=== PATIENT | female | born 1965 ===

== ENCOUNTER 2016-11-14 18:59 | Inpatient (IN) | payer MEDICAID, OTHER ==
[2016-11-14 20:05] LABS: BASO # 0.03 K/mm3 (0.0-2.0); BASO % 0.2 % (0.0-3.0); EOS # 0.1 (0.0-0.7); EOS % 0.3 % (1.5-5.0); GRAN # 10.58 (1.4-6.5); HEMATOCRIT 24.8 % (36.0-48.0); LYMPH # 3.3 (1.2-3.4); MEAN CELL VOLUME 51.6 fl (80.0-105.0); MEAN CORPUSCULAR HEMOGLOBIN 14.3 pg (25.0-35.0); MEAN CORPUSCULAR HGB CONC 27.8 g/dl (31.0-37.0); MONO # 1.1 (0.1-0.6); MONO % 7.5 % (1.0-6.0); PLATELET COUNT 383 10^3/uL (120.0-450.0); WHITE BLOOD COUNT 15.1 10^3/ul (4.5-11.0)
[2016-11-14 20:15] LABS: INR 0.93 (0.93-1.08); PARTIAL THROMBOPLASTIN TIME 23.7 Seconds (23.7-30.8)
[2016-11-14 20:40] LABS: ALKALINE PHOSPHATASE 61 U/L (38-126); ALT/SGPT 31 U/L (7-56); AST/SGOT 44 U/L (14-36); BILIRUBIN,TOTAL 0.2 mg/dL (0.2-1.3); BLOOD UREA NITROGEN 10 mg/dL (7-21); CALCIUM 8.1 mg/dL (8.4-10.5); CARBON DIOXIDE 22 mmol/L (21-33); CHLORIDE 110 mmol/L (98-107); GFR AFRICAN-AMERICAN > 60; GLUCOSE,RANDOM 103 mg/dL (70-110); POTASSIUM 3.4 mmol/L (3.6-5.0); SODIUM 140 mmol/L (132-148); TOTAL PROTEIN 6.7 g/dL (5.8-8.3)
[2016-11-14] MEDS ORDERED: Potassium Chloride 20 mEq ER Tab PO STA (20:47)
--- NOTE | 2016-11-14 21:08 | ED PDOC ---
Arrival/HPI - General Chief Complaint: Female Genitourinary Time Seen by Provider: 11/14/16 19:04 Historian: Patient - History of Present Illness Narrative History of Present Illness (Text): 11/14/16 19:35 Sarah Rubi is a 51 year old female, whose past medical history includes substance abuse, who presents to the Emergency department complaining of vaginal bleeding for the past 2 months. Patient denies any fever, chills, chest pain, shortness of breath, nausea, vomiting, diarrhea, urinary symptoms, back pain, neck pain, headache, dizziness, or any other complaints. No PMD Time/Duration: > month (2 months) Symptom Onset: Gradual Symptom Course: Unchanged Activities at Onset: Light Context: Home Past Medical History - Provider Review Nursing Documentation Reviewed: Yes - Infectious Disease Hx of Infectious Diseases: None - Cardiac Hx Cardiac Disorders: No Hx Hypertension: Yes - Pulmonary Hx Tuberculosis: No - Neurological HX Cerebrovascular Accident: No Hx Seizures: No - Hematological/Oncological Hx Cancer: No - Musculoskeletal/Rheumatological Hx Falls: No - Genitourinary/Gynecological Hx Sexually Transmitted Diseases: No - Psychiatric Hx Substance Use: No - Surgical History Hx Section: Yes (x2) - Anesthesia Hx Anesthesia: Yes Hx Anesthesia Reactions: No Hx Malignant Hyperthermia: No Family/Social History - Physician Review Nursing Documentation Reviewed: Yes Family/Social History: Unknown Family HX Smoking Status: Heavy Smoker > 10 Cigarettes Daily Hx Alcohol Use: No Hx Substance Use: No Substance used: heroine, cocaine, marijuana Allergies/Home Meds Allergies/Adverse Reactions: Allergies aspirin Adverse Reaction (Verified 11/14/16 19:14) RASH Home Medications: Home Meds Medication Instructions Recorded Confirmed metFORMIN [glucOPHAGE] 1 tab PO BID 11/14/16 11/14/16 Review of Systems - Physician Review All systems were reviewed & negative as marked: Yes - Review of Systems Constitutional: Normal. absent: Fevers Eyes: Normal ENT: Normal Respiratory: Normal. absent: SOB, Cough Cardiovascular: Normal. absent: Chest Pain Gastrointestinal: Normal. absent: Abdominal Pain, Diarrhea, Nausea, Vomiting Genitourinary Female: Vaginal Bleeding. absent: Dysuria, Frequency, Hematuria, Urine Output Changes Musculoskeletal: Normal. absent: Back Pain, Neck Pain Skin: Normal. absent: Rash Neurological: Normal. absent: Headache, Dizziness Endocrine: Normal Hemo/Lymphatic: Normal Psychiatric: Normal Physical Exam Vital Signs Reviewed: Yes Vital Signs Temp Pulse Resp BP Pulse Ox 11/14/16 22:00 98.3 F 69 16 124/74 99 11/14/16 19:10 99.1 F 71 19 121/83 100 Temperature: Afebrile Blood Pressure: Normal Pulse: Regular Respiratory Rate: Normal Appearance: Positive for: Well-Appearing, Non-Toxic, Comfortable Pain Distress: None Mental Status: Positive for: Alert and Oriented X 3 - Systems Exam Head: Present: Atraumatic, Normocephalic Pupils: Present: PERRL Extroacular Muscles: Present: EOMI Conjunctiva: Present: Normal Mouth: Present: Moist Mucous Membranes Neck: Present: Normal Range of Motion Respiratory/Chest: Present: Clear to Auscultation, Good Air Exchange. No: Respiratory Distress, Accessory Muscle Use Cardiovascular: Present: Regular Rate and Rhythm, Normal S1, S2. No: Murmurs Abdomen: Present: Normal Bowel Sounds. No: Tenderness, Distention, Peritoneal Signs Back: Present: Normal Inspection Upper Extremity: Present: Normal Inspection. No: Cyanosis, Edema Lower Extremity: Present: Normal Inspection. No: Edema Neurological: Present: GCS=15, CN II-XII Intact, Speech Normal Skin: Present: Warm, Dry, Normal Color. No: Rashes Psychiatric: Present: Alert, Oriented x 3, Normal Insight, Normal Concentration Medical Decision Making ED Course and Treatment: 11/14/16 19:35 Impression: 51 year old female complaining of vaginal bleeding for 2 months. Plan: -- US Transvaginal -- EKG -- Labs, blood type and screen -- Reassess and disposition Prior Visits: Notes and results from previous visits were reviewed. On 04/06/15, pt was seen in the Emergency department requesting detox from heroin, alcohol, cocaine and marijuana. Pt was admitted to hospital for further psychiatric evaluation. Progress Notes: 11/14/16 21:[address] Nitesh Ontiveros, who is aware and agrees with plan. Accepts pt in to hospitalist service. 11/14/16 21:28 Case discussed with medical malpractice paralegal hospice care sales consultant, who is aware and agrees with plan. 11/14/16 22:18 Reviewed sono, US Pelvis, Transabdominal shows: 1. Cervical lesion, indeterminate. Malignancy not excluded. Clinical correlation is needed. 2. Thickened endometrium, abnormal if patient is postmenopausal. Clinical correlation and follow up are recommended. 3. LEFT ovarian lesion, incompletely characterized. Recommend MRI. 4. Probable fibroid. US Pelvis, Transvaginal shows: 1. Cervical lesion, indeterminate. Malignancy not excluded. Clinical correlation is needed. 2. Thickened endometrium, abnormal if patient is postmenopausal. Clinical correlation and follow up are recommended. 3. LEFT ovarian lesion, incompletely characterized. Recommend MRI. 4. Probable fibroid. - Lab Interpretations Microbiology Results: Microbiology Results 11/14/16 00:45 Blood Blood Culture - Preliminary NO GROWTH AFTER 24 HOURS Lab Results: 11/14/16 19:45 11/14/16 19:45 Lab Results 11/14/16 19:45: Blood Type AB POSITIVE, Antibody Screen Negative, Crossmatch See Detail, BBK History Checked No verified bt 11/14/16 19:45: Urine HCG, Qual Negative 11/14/16 19:45: Sodium 140, Potassium 3.4 L, Chloride 110 H, Carbon Dioxide 22, Anion Gap 11, BUN 10, Creatinine 0.6, Est GFR ( Amer) > 60, Est GFR (Non- Af Amer) > 60, Random Glucose 103, Calcium 8.1 L, Total Bilirubin 0.2, AST 44 H , ALT 31, Alkaline Phosphatase 61, Total Protein 6.7, Albumin 3.3, Globulin 3.4 , Albumin/Globulin Ratio 1.0 L 11/14/16 19:45: PT 10.0, INR 0.93, APTT 23.7 11/14/16 19:45: WBC 15.1 H, RBC 4.81, Hgb 6.9 L*, Hct 24.8 L, MCV 51.6 L, MCH 14.3 L, MCHC 27.8 L, RDW 23.0 H, Plt Count 383, Gran % 70.0 H, Lymph % (Auto) 22.0, [place] % (Auto) 7.5 H, Eos % (Auto) 0.3 L, Baso % (Auto) 0.2, Gran # 10.58 H , Lymph # 3.3, [place] # 1.1 H, Eos # 0.1, Baso # 0.03 I have reviewed the lab results: Yes - RAD Interpretation Narrative RAD Interpretations (Text): US Pelvis, Transabdominal shows: Uterus/cervix: Uterus measures 9.9 x 5.7 x 5.9 cm in size. 0.7 x 0.7 x 0.5 cm exophytic uterine mass. Endometrium: 1.0 cm in thickness. Apparent 5.3 x 2.1 x 3.7 cm hypervascular lesion within cervix. Right ovary: 2.4 x 1.2 x 2.4 cm in size. No mass. Normal flow. Left ovary: 4.1 x 2.8 x 3.9 cm in size. 3.0 x 3.3 x 2.9 cm anechoic lesion with questionable hyperechoic mural nodule. Normal flow. Free fluid: No significant free fluid. Bladder: Unremarkable as visualized. IMPRESSION: 1. Cervical lesion, indeterminate. Malignancy not excluded. Clinical correlation is needed. 2. Thickened endometrium, abnormal if patient is postmenopausal. Clinical correlation and follow up are recommended. 3. LEFT ovarian lesion, incompletely characterized. Recommend MRI. 4. Probable fibroid. US Pelvis, Transvaginal shows: Uterus/cervix: Uterus measures 9.9 x 5.7 x 5.9 cm in size. 0.7 x 0.7 x 0.5 cm exophytic uterine mass. Endometrium: 1.0 cm in thickness. Apparent 5.3 x 2.1 x 3.7 cm hypervascular lesion within cervix. Right ovary: 2.4 x 1.2 x 2.4 cm in size. No mass. Normal flow. Left ovary: 4.1 x 2.8 x 3.9 cm in size. 3.0 x 3.3 x 2.9 cm anechoic lesion with questionable hyperechoic mural nodule. Normal flow. Free fluid: No significant free fluid. Bladder: Empty bladder which cannot be evaluated with this probe. IMPRESSION: 1. Cervical lesion, indeterminate. Malignancy not excluded. Clinical correlation is needed. 2. Thickened endometrium, abnormal if patient is postmenopausal. Clinical correlation and follow up are recommended. 3. LEFT ovarian lesion, incompletely characterized. Recommend MRI. 4. Probable fibroid. Radiology Orders: 11/14/16 19:35 TRANSVAGINAL [US] Stat Catering Operations Manager: Radiologist - Medication Orders Current Medication Orders: Discontinued Medications Acetaminophen (Tylenol 325mg Tab) 650 mg PO STAT STA Stop: 11/14/16 22:41 Last Admin: 11/14/16 22:45 Dose: 650 mg Sodium Chloride (Sodium Chloride 0.9%) 1,000 mls @ 75 mls/hr IV .[id number] [facility] Last Admin: 11/15/16 06:58 Dose: 75 mls/hr Insulin Human Lispro (Humalog Med) 0 units SC ACHS ALAN PRN Reason: Protocol Last Admin: 11/15/16 12:12 Dose: 1 units Metronidazole (Flagyl) 500 mg PO STAT STA PRN Reason: Protocol Stop: 11/14/16 23:43 Last Admin: 11/15/16 00:05 Dose: 500 mg Nicotine (Nicoderm Cq) 1 patch TD DAILY [facility] Last Admin: 11/15/16 10:45 Dose: 1 patch Ondansetron HCl (Zofran Inj) 2 mg IVP Q4H PRN PRN Reason: nausea/vomitting Ondansetron HCl (Zofran Inj) 4 mg IVP Q4H PRN PRN Reason: nausea/vomitting Pantoprazole Sodium (Protonix Ec Tab) 40 mg PO 0600 [facility] Last Admin: 11/15/16 06:58 Dose: 40 mg Potassium Chloride (K-Dur 20 Meq Er Tab) 40 meq PO STAT STA Stop: 11/14/16 20:48 Last Admin: 11/14/16 21:38 Dose: 40 meq - Scribe Statement The provider has reviewed the documentation as recorded by the Erik Arcos Provider Scribe Attestation: All medical record entries made by the Scribjericho were at my direction and personally dictated by me. I have reviewed the chart and agree that the record accurately reflects my personal performance of the history, physical exam, medical decision making, and the department course for this patient. I have also personally directed, reviewed, and agree with the discharge instructions and disposition. Disposition/Present on Arrival - Present on Arrival Any Indicators Present on Arrival: No History of DVT/PE: No History of Uncontrolled Diabetes: No Urinary Catheter: No History of Decub. Ulcer: No History Surgical Site Infection Following: None - Disposition Have Diagnosis and Disposition been Completed?: Yes Diagnosis: Abnormal vaginal bleeding Disposition: HOSPITALIZED Disposition Time: 21:15 Condition: GOOD
--- NOTE | 2016-11-14 22:15 | US ---
EXAM: US Pelvis Complete, Transabdominal CLINICAL HISTORY: 51 years old, female; Signs and symptoms; Menstruation abnormalities; Excessive menstruation; In the premenopausal period; Additional info: Vaginal bleeding TECHNIQUE: Real-time transabdominal pelvic ultrasound (complete) with image documentation. COMPARISON: No relevant prior studies available. FINDINGS: Uterus/cervix: Uterus measures 9.9 x 5.7 x 5.9 cm in size. 0.7 x 0.7 x 0.5 cm exophytic uterine mass. Endometrium: 1.0 cm in thickness. Apparent 5.3 x 2.1 x 3.7 cm hypervascular lesion within cervix. Right ovary: 2.4 x 1.2 x 2.4 cm in size. No mass. Normal flow. Left ovary: 4.1 x 2.8 x 3.9 cm in size. 3.0 x 3.3 x 2.9 cm anechoic lesion with questionable hyperechoic mural nodule. Normal flow. Free fluid: No significant free fluid. Bladder: Unremarkable as visualized. IMPRESSION: 1. Cervical lesion, indeterminate. Malignancy not excluded. Clinical correlation is needed. 2. Thickened endometrium, abnormal if patient is postmenopausal. Clinical correlation and follow up are recommended. 3. LEFT ovarian lesion, incompletely characterized. Recommend MRI. 4. Probable fibroid. EXAM: US Pelvis, Transvaginal CLINICAL HISTORY: 51 years old, female; Signs and symptoms; Menstruation abnormalities; Excessive menstruation; In the premenopausal period; Additional info: Vaginal bleeding TECHNIQUE: Real-time transvaginal pelvic ultrasound (complete) with image documentation. Transvaginal imaging was used for better evaluation of the endometrium and adnexa. COMPARISON: No relevant prior studies available. FINDINGS: Uterus/cervix: Uterus measures 9.9 x 5.7 x 5.9 cm in size. 0.7 x 0.7 x 0.5 cm exophytic uterine mass. Endometrium: 1.0 cm in thickness. Apparent 5.3 x 2.1 x 3.7 cm hypervascular lesion within cervix. Right ovary: 2.4 x 1.2 x 2.4 cm in size. No mass. Normal flow. Left ovary: 4.1 x 2.8 x 3.9 cm in size. 3.0 x 3.3 x 2.9 cm anechoic lesion with questionable hyperechoic mural nodule. Normal flow. Free fluid: No significant free fluid. Bladder: Empty bladder which cannot be evaluated with this probe.
--- NOTE | 2016-11-14 23:03 | CP.PCM.HP ---
History of Present Illness - History of Present Illness History of Present Illness: Patient is a 51 year old female with a PMHx of cocaine, opioid, and ETOH abuse , PTSD, MDD, borderline personality disorder, generalized anxiety disorder, HTN , and DM who is being admitted to the hospital for evaluation and treatment of vaginal bleeding for 2 months duration with no provoking event. Bleeding is associated with dull and intermittently sharp pain. Denies exacerbating and remitting factors. Also states that she experienced nonbloody emesis this AM and multiple bouts yesterday without provoking events. Additionally she experienced 4 nonbloody loose stools today and admits to urinary frequency. States she believed she had a fever and chills yesterday. Denies dizziness, headache, chest pain, SOB, abdominal pain, constipation. PMHx: cocaine, opioid, and ETOH abuse, PTSD, MDD, borderline personality disorder, and generalized anxiety disorder, HTN, and DM PSHx: 2 c sections Allergies: Aspiring- Hives Family hx- mother- lung cancer Social hx- cigarette use 34 year 1ppd, denies ETOH use, former illicit drug user Present on Admission - Present on Admission Any Indicators Present on Admission: No Review of Systems - Review of Systems Review of Systems: 12 point review of systems negative except as noted in HPI. Past Patient History - Infectious Disease Hx of Infectious Diseases: None - Past Medical History & Family History Past Medical History?: No - Past Social History Smoking Status: Heavy Smoker > 10 Cigarettes Daily - CARDIAC Hx Cardiac Disorders: No Hx Hypertension: Yes - PULMONARY Hx Tuberculosis: No - NEUROLOGICAL HX Cerebrovascular Accident: No Hx Seizures: No - HEMATOLOGICAL/ONCOLOGICAL Hx Cancer: No - MUSCULOSKELETAL/RHEUMATOLOGICAL Hx Falls: No - GENITOURINARY/GYNECOLOGICAL Hx Sexually Transmitted Disorders: No - PSYCHIATRIC Hx Substance Use: No - SURGICAL HISTORY Hx Section: Yes (x2) - ANESTHESIA Hx Anesthesia: Yes Hx Anesthesia Reactions: No Hx Malignant Hyperthermia: No Meds Allergies/Adverse Reactions: Allergies Allergy/AdvReac Type Severity Reaction Status Date / Time aspirin AdvReac RASH Verified 11/14/16 19:14 Physical Exam - Constitutional Appears: Non-toxic, No Acute Distress - Head Exam Head Exam: ATRAUMATIC, NORMAL INSPECTION - Eye Exam Eye Exam: Normal appearance - ENT Exam ENT Exam: Mucous Membranes Moist - Neck Exam Neck exam: Positive for: Normal Inspection - Respiratory Exam Respiratory Exam: Clear to Auscultation Bilateral, NORMAL BREATHING PATTERN - Cardiovascular Exam Cardiovascular Exam: REGULAR RHYTHM, +S1, +S2 - GI/Abdominal Exam GI & Abdominal Exam: Normal Bowel Sounds, Soft. absent: Guarding, Rebound, Tenderness - Exam Additional comments: no suprapubic tenderness - Extremities Exam Extremities exam: Positive for: normal inspection. Negative for: tenderness - Back Exam Back exam: absent: CVA tenderness (L), CVA tenderness (R) - Neurological Exam Neurological exam: CN II-XII Intact, Oriented x3 - Psychiatric Exam Psychiatric exam: Normal Affect, Normal Mood - Skin Skin Exam: Intact, Warm Results - Vital Signs Recent Vital Signs: Last Vital Signs Temp 98.3 F 11/14/16 22:00 Pulse 69 11/14/16 22:00 Resp 16 11/14/16 22:00 BP 124/74 11/14/16 22:00 Pulse Ox 99 11/14/16 22:00 - Labs Result Diagrams: 11/14/16 19:45 11/14/16 19:45 Assessment & Plan - Assessment and Plan (Free Text) Assessment: Patient is a 51 year old female with a PMHx of cocaine, opioid, and ETOH abuse , PTSD, MDD, borderline personality disorder, generalized anxiety disorder, HTN , and metfomin who is being admitted to the hospital for evaluation and treatment of vaginal bleeding for 2 months duration. Vaginal Bleeding - transvaginal us report reviewed: 1. Cervical lesion, indeterminate. Malignancy not excluded. Clinical correlation is needed. 2. Thickened endometrium, abnormal if patient is postmenopausal. Clinical correlation and follow up are recommended. 3. LEFT ovarian lesion, incompletely characterized. Recommend MRI. 4. Probable fibroid. - dietetics teacher consult Nausea/Vomitting/Diarrhrea - likely gastroenteritis viral vs bacterial vs gastroparesis due to DM - NPO for now, no IVF as patient is receiving 2 units of pRBCs at this time - zofran prn - flagyl PO one time dose given - stool culture - consider CT of abdomen if symptoms do not resolve Anemia - Hgb 6.9 noted, transfuse 2 units of pRBC as per ED - likely 2/2 vaginal bleeding - monitor closely via CBC in AM Leukocytosis - possibly from gastroenteritis - blood culture and urine culture - UA - monitor closely via CBC in AM HTN - stable, no home medications listed, patient states she takes HCTZ 10mg daily- confirm with pharmacy in AM - monitor closely DM - Hold home metformin - ISS - Accuchecks ACHS Former Drug Abuser - UDS MDD, Borderline personality disorder, and Generalized Anxiety Disorder - patients mood stable, does not take previously prescribed psych medications-- no reports of behavioral issues currently, consider psych evaluaton pending behavioral course - as per discharge psych note the patient was on escitalopram, prazosin, seroquel, and gabapentin Hypokalemia - repleted in ED - monitor closely with daily CMP PPX - Scds - Protonixs Case discussed with and approved by attending, Dr. Riana Ontiveros.
[2016-11-15] MEDS ORDERED: Pantoprazole 40 mg EC Tab PO SCH (06:00)
[2016-11-15 06:03] VITALS: BP 112/66; PULSE 67; RESP 20; TEMP 98.2
[2016-11-15] MEDS ORDERED: Sodium Chloride 0.9% 1,000 ML IV SCH (06:30)
[2016-11-15] MEDS: Insulin Lispro (humaLOG) MEDIUM Coverage SC SCH ×2 (07:30→12:12)
[2016-11-15 07:43] VITALS: O2SAT 98
[2016-11-15 08:40] LABS: PH,URINE 6.5 (4.7-8.0); URINE APPEARANCE CLOUDY (CLEAR); URINE BILIRUBIN NEGATIVE (NEGATIVE); URINE BLOOD LARGE (NEGATIVE); URINE COLOR DARK YELLOW (YELLOW); URINE GLUCOSE (UA) NEGATIVE (NEGATIVE); URINE KETONE NEGATIVE (NEGATIVE); URINE LEUKOCYTE ESTERASE TRACE Leu/uL (NEGATIVE); URINE PROTEIN 100 mg/dL (<30 mg/dL)
[2016-11-15 08:58] LABS: URINE RBC TNTC /hpf (0-2); URINE WBC 25 - 30 /hpf (0-6)
[2016-11-15 08:59] LABS: URINE BACTERIA FEW (NEG)
[2016-11-15 09:17] LABS: BASO # 0.04 K/mm3 (0.0-2.0); BASO % 0.3 % (0.0-3.0); EOS % 0.2 % (1.5-5.0); GRAN # 9.07 (1.4-6.5); HEMATOCRIT 29.7 % (36.0-48.0); LYMPH # 2.3 (1.2-3.4); LYMPH % 18.6 % (22.0-35.0); MEAN CELL VOLUME 55.8 fl (80.0-105.0); MEAN CORPUSCULAR HEMOGLOBIN 16.9 pg (25.0-35.0); MEAN CORPUSCULAR HGB CONC 30.3 g/dl (31.0-37.0); MONO # 0.7 (0.1-0.6); MONO % 5.9 % (1.0-6.0); PLATELET COUNT 337 10^3/uL (120.0-450.0); RED CELL DISTRIBUTION WIDTH 28.4 % (11.5-14.5); WHITE BLOOD COUNT 12.1 10^3/ul (4.5-11.0)
[2016-11-15 09:19] LABS: RETIC% 1.35 % (0.5-1.5)
[2016-11-15 09:40] LABS: ALKALINE PHOSPHATASE 75 U/L (38-126); ALT/SGPT 35 U/L (7-56); AST/SGOT 41 U/L (14-36); BILIRUBIN,TOTAL 1.4 mg/dL (0.2-1.3); BLOOD UREA NITROGEN 8 mg/dL (7-21); CALCIUM 8.5 mg/dL (8.4-10.5); CARBON DIOXIDE 20 mmol/L (21-33); CHLORIDE 111 mmol/L (98-107); GFR AFRICAN-AMERICAN > 60; GLUCOSE,RANDOM 96 mg/dL (70-110); MAGNESIUM 1.8 mg/dL (1.7-2.2); PHOSPHOROUS 2.2 mg/dL (2.5-4.5); POTASSIUM 3.7 mmol/L (3.6-5.0); SODIUM 140 mmol/L (132-148); TOTAL PROTEIN 7.2 g/dL (5.8-8.3)
[2016-11-15 09:44] LABS: IRON 179 ug/dL (45-180)
[2016-11-15 17:25] LABS: FOLATE > 20.0 ng/mL
--- NOTE | 2016-11-15 23:20 | CP.PCM.DIS ---
<MARIMAR TANNER - Last Filed: 11/15/16 23:12> Provider - Provider Date of Admission: 11/14/16 21:51 Attending physician: Carl Ontiveros MD Primary care physician: NO PRIMARY CARE PROVIDER Time Spent in preparation of Discharge (in minutes): 40 Diagnosis - Discharge Diagnosis (1) Abnormal vaginal bleeding Status: Acute Priority: High Hospital Course - Lab Results Lab Results: Most Recent Lab Values WBC 12.1 10^3/ul (4.5-11.0) H 11/15/16 08:50 RBC 5.32 10^6/uL (3.5-6.1) 11/15/16 08:50 Hgb 9.0 g/dL (12.0-16.0) L D 11/15/16 08:50 Hct 29.7 % (36.0-48.0) L 11/15/16 08:50 MCV 55.8 fl (80.0-105.0) L D 11/15/16 08:50 MCH 16.9 pg (25.0-35.0) L 11/15/16 08:50 MCHC 30.3 g/dl (31.0-37.0) L 11/15/16 08:50 RDW 28.4 % (11.5-14.5) H 11/15/16 08:50 Plt Count 337 10^3/uL (120.0-450.0) 11/15/16 08:50 Gran % 75.0 % (50.0-68.0) H 11/15/16 08:50 Lymph % (Auto) 18.6 % (22.0-35.0) L 11/15/16 08:50 [place] % (Auto) 5.9 % (1.0-6.0) 11/15/16 08:50 Eos % (Auto) 0.2 % (1.5-5.0) L 11/15/16 08:50 Baso % (Auto) 0.3 % (0.0-3.0) 11/15/16 08:50 Gran # 9.07 (1.4-6.5) H 11/15/16 08:50 Lymph # 2.3 (1.2-3.4) 11/15/16 08:50 [place] # 0.7 (0.1-0.6) H 11/15/16 08:50 Eos # 0.0 (0.0-0.7) 11/15/16 08:50 Baso # 0.04 K/mm3 (0.0-2.0) 11/15/16 08:50 Retic Count 1.35 % (0.5-1.5) 11/15/16 08:50 PT 10.0 Seconds (9.9-11.8) 11/14/16 19:45 INR 0.93 (0.93-1.08) 11/14/16 19:45 APTT 23.7 Seconds (23.7-30.8) 11/14/16 19:45 Sodium 140 mmol/L (132-148) 11/15/16 08:50 Potassium 3.7 mmol/L (3.6-5.0) 11/15/16 08:50 Chloride 111 mmol/L (98-107) H 11/15/16 08:50 Carbon Dioxide 20 mmol/L (21-33) L 11/15/16 08:50 Anion Gap 13 (10-20) 11/15/16 08:50 BUN 8 mg/dL (7-21) 11/15/16 08:50 Creatinine 0.5 mg/dL (0.5-1.4) 11/15/16 08:50 Est GFR ( Amer) > 60 11/15/16 08:50 Est GFR (Non-Af Amer) > 60 11/15/16 08:50 POC Glucose (mg/dL) 167 mg/dL (65-110) H 11/15/16 11:32 Random Glucose 96 mg/dL (70-110) 11/15/16 08:50 Calcium 8.5 mg/dL (8.4-10.5) 11/15/16 08:50 Phosphorus 2.2 mg/dL (2.5-4.5) L 11/15/16 08:50 Magnesium 1.8 mg/dL (1.7-2.2) 11/15/16 08:50 Iron 179 ug/dL (45-180) 11/15/16 08:50 TIBC 452 ug/dL (265-497) 11/15/16 08:50 % Saturation 40 % (20-55) 11/15/16 08:50 Ferritin 4.8 ng/mL 11/15/16 08:50 Total Bilirubin 1.4 mg/dL (0.2-1.3) H 11/15/16 08:50 AST 41 U/L (14-36) H 11/15/16 08:50 ALT 35 U/L (7-56) 11/15/16 08:50 Alkaline Phosphatase 75 U/L (38-126) 11/15/16 08:50 Total Protein 7.2 g/dL (5.8-8.3) 11/15/16 08:50 Albumin 3.6 g/dL (3.0-4.8) 11/15/16 08:50 Globulin 3.6 gm/dL 11/15/16 08:50 Albumin/Globulin Ratio 1.0 (1.1-1.8) L 11/15/16 08:50 Vitamin B12 539 pg/mL (239-931) 11/15/16 08:50 Folate > 20.0 ng/mL 11/15/16 08:50 Procalcitonin < 0.05 NG/ML (0.19-0.49) L 11/15/16 08:50 TSH 3rd Generation 0.22 mIU/mL (0.46-4.68) L 11/15/16 08:50 Urine Color Dark yellow (YELLOW) 11/15/16 08:10 Urine Appearance Cloudy (CLEAR) 11/15/16 08:10 Urine pH 6.5 (4.7-8.0) 11/15/16 08:10 Ur Specific [place] 1.025 (1.005-1.035) 11/15/16 08:10 Urine Protein 100 mg/dL (<30 mg/dL) H 11/15/16 08:10 Urine Glucose (UA) Negative mg/dL (NEGATIVE) 11/15/16 08:10 Urine Ketones Negative mg/dL (NEGATIVE) 11/15/16 08:10 Urine Blood Large (NEGATIVE) H 11/15/16 08:10 Urine Nitrate Negative (NEGATIVE) 11/15/16 08:10 Urine Bilirubin Negative (NEGATIVE) 11/15/16 08:10 Urine Urobilinogen 1.0 E.U./dL (<1 E.U./dL) H 11/15/16 08:10 Ur Leukocyte Esterase Trace Kacy/uL (NEGATIVE) H 11/15/16 08:10 Urine RBC Tntc /hpf (0-2) 11/15/16 08:10 Urine WBC 25 - 30 /hpf (0-6) 11/15/16 08:10 Ur Epithelial Cells 4 - 5 /hpf (0-5) 11/15/16 08:10 Urine Bacteria Few (NEG) 11/15/16 08:10 Urine HCG, Qual Negative (NEGATIVE) 11/14/16 19:45 Urine Opiates Screen Negative (NEGATIVE) 11/15/16 15:30 Urine Methadone Screen Negative (NEGATIVE) 11/15/16 15:30 Ur Barbiturates Screen Negative (NEGATIVE) 11/15/16 15:30 Ur Phencyclidine Scrn Negative (NEGATIVE) 11/15/16 15:30 Ur Amphetamines Screen Negative (NEGATIVE) 11/15/16 15:30 U Benzodiazepines Scrn Negative (NEGATIVE) 11/15/16 15:30 U Oth Cocaine Metabols Negative (NEGATIVE) 11/15/16 15:30 U Cannabinoids Screen Positive (NEGATIVE) H 11/15/16 15:30 Blood Type AB POSITIVE 11/14/16 19:45 Blood Type Confirm AB POSITIVE 11/14/16 22:25 Antibody Screen Negative 11/14/16 19:45 Crossmatch See Detail 11/14/16 19:45 BBK History Checked No verified bt 11/14/16 19:45 - Hospital Course Hospital Course: Patient is a 51 year old female with a PMHx of cocaine, opioid, and ETOH abuse , PTSD, MDD, borderline personality disorder, generalized anxiety disorder, HTN , and metfomin who is being admitted to the hospital for evaluation and treatment of vaginal bleeding for 6 months duration. Pt stated that for the past 6 months she has had heavier and irregular bleeding and is unsure if going through menopause. She doesn't have a ingredient mixer due to insurance issues at the moment. Transvaginal US in ED showed cervical lesion (fibroid?), L ovarian lesion (unclear if cyst) and thickened endometrium. Pt was made NPO and pain managed appropriately. Pt was put on Zofran and PTX and made NPO. ObGyn was consulted. pt was found to have leukocytosis and anemia Hgb 6.9. Pt was transfused 2u pRBCs, and f/u H/H was 9/29.7. Later in the afternoon, pt requested from nurse that she would like to leave AMA. Resident was paged. I explained the benefits and the risk of leaving and the probable need for an endometrial biopsy given the presentation of abnormal vaginal bleeding in a harley/postmenopausal woman. The risk of sepsis and was also explained to her. Nurse was there to witness. Pt still desired to leave stating that she feels much better and doesn't see why she needs to stay. Pt was encouraged to f/u with a ingredient mixer outpt. Vitals were stable and pt understood risk of leaving vs benefit of staying and receiving medical treatment. - Date & Time of H&P Date of H&P: 11/14/16 Time of H&P: 22:55 Discharge Exam - Head Exam Head Exam: ATRAUMATIC, NORMAL INSPECTION Discharge Plan - Follow Up Plan Condition: GOOD Disposition: AGAINST MEDICAL ADVICE Referrals: PCP,NO [Primary Care Provider] - <Carl Ontiveros - Last Filed: 11/16/16 08:34> Provider - Provider Date of Admission: 11/14/16 21:51 Attending physician: Carl Ontiveros MD Primary care physician: NO PRIMARY CARE PROVIDER Hospital Course - Lab Results Lab Results: Most Recent Lab Values WBC 12.1 10^3/ul (4.5-11.0) H 11/15/16 08:50 RBC 5.32 10^6/uL (3.5-6.1) 11/15/16 08:50 Hgb 9.0 g/dL (12.0-16.0) L D 11/15/16 08:50 Hct 29.7 % (36.0-48.0) L 11/15/16 08:50 MCV 55.8 fl (80.0-105.0) L D 11/15/16 08:50 MCH 16.9 pg (25.0-35.0) L 11/15/16 08:50 MCHC 30.3 g/dl (31.0-37.0) L 11/15/16 08:50 RDW 28.4 % (11.5-14.5) H 11/15/16 08:50 Plt Count 337 10^3/uL (120.0-450.0) 11/15/16 08:50 Gran % 75.0 % (50.0-68.0) H 11/15/16 08:50 Lymph % (Auto) 18.6 % (22.0-35.0) L 11/15/16 08:50 [place] % (Auto) 5.9 % (1.0-6.0) 11/15/16 08:50 Eos % (Auto) 0.2 % (1.5-5.0) L 11/15/16 08:50 Baso % (Auto) 0.3 % (0.0-3.0) 11/15/16 08:50 Gran # 9.07 (1.4-6.5) H 11/15/16 08:50 Lymph # 2.3 (1.2-3.4) 11/15/16 08:50 [place] # 0.7 (0.1-0.6) H 11/15/16 08:50 Eos # 0.0 (0.0-0.7) 11/15/16 08:50 Baso # 0.04 K/mm3 (0.0-2.0) 11/15/16 08:50 Retic Count 1.35 % (0.5-1.5) 11/15/16 08:50 PT 10.0 Seconds (9.9-11.8) 11/14/16 19:45 INR 0.93 (0.93-1.08) 11/14/16 19:45 APTT 23.7 Seconds (23.7-30.8) 11/14/16 19:45 Sodium 140 mmol/L (132-148) 11/15/16 08:50 Potassium 3.7 mmol/L (3.6-5.0) 11/15/16 08:50 Chloride 111 mmol/L (98-107) H 11/15/16 08:50 Carbon Dioxide 20 mmol/L (21-33) L 11/15/16 08:50 Anion Gap 13 (10-20) 11/15/16 08:50 BUN 8 mg/dL (7-21) 11/15/16 08:50 Creatinine 0.5 mg/dL (0.5-1.4) 11/15/16 08:50 Est GFR ( Amer) > 60 11/15/16 08:50 Est GFR (Non-Af Amer) > 60 11/15/16 08:50 POC Glucose (mg/dL) 167 mg/dL (65-110) H 11/15/16 11:32 Random Glucose 96 mg/dL (70-110) 11/15/16 08:50 Calcium 8.5 mg/dL (8.4-10.5) 11/15/16 08:50 Phosphorus 2.2 mg/dL (2.5-4.5) L 11/15/16 08:50 Magnesium 1.8 mg/dL (1.7-2.2) 11/15/16 08:50 Iron 179 ug/dL (45-180) 11/15/16 08:50 TIBC 452 ug/dL (265-497) 11/15/16 08:50 % Saturation 40 % (20-55) 11/15/16 08:50 Ferritin 4.8 ng/mL 11/15/16 08:50 Total Bilirubin 1.4 mg/dL (0.2-1.3) H 11/15/16 08:50 AST 41 U/L (14-36) H 11/15/16 08:50 ALT 35 U/L (7-56) 11/15/16 08:50 Alkaline Phosphatase 75 U/L (38-126) 11/15/16 08:50 Total Protein 7.2 g/dL (5.8-8.3) 11/15/16 08:50 Albumin 3.6 g/dL (3.0-4.8) 11/15/16 08:50 Globulin 3.6 gm/dL 11/15/16 08:50 Albumin/Globulin Ratio 1.0 (1.1-1.8) L 11/15/16 08:50 Vitamin B12 539 pg/mL (239-931) 11/15/16 08:50 Folate > 20.0 ng/mL 11/15/16 08:50 Procalcitonin < 0.05 NG/ML (0.19-0.49) L 11/15/16 08:50 TSH 3rd Generation 0.22 mIU/mL (0.46-4.68) L 11/15/16 08:50 Urine Color Dark yellow (YELLOW) 11/15/16 08:10 Urine Appearance Cloudy (CLEAR) 11/15/16 08:10 Urine pH 6.5 (4.7-8.0) 11/15/16 08:10 Ur Specific [place] 1.025 (1.005-1.035) 11/15/16 08:10 Urine Protein 100 mg/dL (<30 mg/dL) H 11/15/16 08:10 Urine Glucose (UA) Negative mg/dL (NEGATIVE) 11/15/16 08:10 Urine Ketones Negative mg/dL (NEGATIVE) 11/15/16 08:10 Urine Blood Large (NEGATIVE) H 11/15/16 08:10 Urine Nitrate Negative (NEGATIVE) 11/15/16 08:10 Urine Bilirubin Negative (NEGATIVE) 11/15/16 08:10 Urine Urobilinogen 1.0 E.U./dL (<1 E.U./dL) H 11/15/16 08:10 Ur Leukocyte Esterase Trace Kacy/uL (NEGATIVE) H 11/15/16 08:10 Urine RBC Tntc /hpf (0-2) 11/15/16 08:10 Urine WBC 25 - 30 /hpf (0-6) 11/15/16 08:10 Ur Epithelial Cells 4 - 5 /hpf (0-5) 11/15/16 08:10 Urine Bacteria Few (NEG) 11/15/16 08:10 Urine HCG, Qual Negative (NEGATIVE) 11/14/16 19:45 Urine Opiates Screen Negative (NEGATIVE) 11/15/16 15:30 Urine Methadone Screen Negative (NEGATIVE) 11/15/16 15:30 Ur Barbiturates Screen Negative (NEGATIVE) 11/15/16 15:30 Ur Phencyclidine Scrn Negative (NEGATIVE) 11/15/16 15:30 Ur Amphetamines Screen Negative (NEGATIVE) 11/15/16 15:30 U Benzodiazepines Scrn Negative (NEGATIVE) 11/15/16 15:30 U Oth Cocaine Metabols Negative (NEGATIVE) 11/15/16 15:30 U Cannabinoids Screen Positive (NEGATIVE) H 11/15/16 15:30 Blood Type AB POSITIVE 11/14/16 19:45 Blood Type Confirm AB POSITIVE 11/14/16 22:25 Antibody Screen Negative 11/14/16 19:45 Crossmatch See Detail 11/14/16 19:45 BBK History Checked No verified bt 11/14/16 19:45 Attending/Attestation - Attestation I have personally seen and examined this patient.: Yes I have fully participated in the care of the patient.: Yes I have reviewed all pertinent clinical information, including history, physical exam and plan: Yes Notes (Text): patient signed out AMA
--- NOTE | 2016-11-16 06:45 | CP.PCM.CON ---
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 had signed out AMA. [employer] TECHNICIAN consult not done. Past Patient History - Infectious Disease Hx of Infectious Diseases: None - Past Medical History & Family History Past Medical History?: No - Past Social History Smoking Status: Heavy Smoker > 10 Cigarettes Daily - CARDIAC Hx Cardiac Disorders: No Hx Hypertension: Yes - PULMONARY Hx Tuberculosis: No - NEUROLOGICAL HX Cerebrovascular Accident: No Hx Seizures: No - ENDOCRINE/METABOLIC Hx Diabetes Mellitus Type 2: Yes - HEMATOLOGICAL/ONCOLOGICAL Hx Cancer: No - MUSCULOSKELETAL/RHEUMATOLOGICAL Hx Falls: No - GENITOURINARY/GYNECOLOGICAL Hx Sexually Transmitted Disorders: No - PSYCHIATRIC Hx Substance Use: No - SURGICAL HISTORY Hx Section: Yes (x2) - ANESTHESIA Hx Anesthesia: Yes Hx Anesthesia Reactions: No Hx Malignant Hyperthermia: No Meds Allergies/Adverse Reactions: Allergies Allergy/AdvReac Type Severity Reaction Status Date / Time aspirin AdvReac RASH Verified 11/14/16 19:14 Results - Vital Signs Recent Vital Signs: Last Vital Signs Temp 98.2 F 11/15/16 07:30 Pulse 67 11/15/16 07:30 Resp 20 11/15/16 07:30 BP 112/66 11/15/16 07:30 Pulse Ox 98 11/15/16 07:30 - Labs Result Diagrams: 11/15/16 08:50 11/15/16 08:50 Labs: Laboratory Results - last 24 hr 11/15/16 11/15/16 11/15/16 08:10 08:50 08:50 WBC 12.1 H RBC 5.32 Hgb 9.0 L D Hct 29.7 L MCV 55.8 L D MCH 16.9 L MCHC 30.3 L RDW 28.4 H Plt Count 337 Gran % 75.0 H Lymph % (Auto) 18.6 L [place] % (Auto) 5.9 Eos % (Auto) 0.2 L Baso % (Auto) 0.3 Gran # 9.07 H Lymph # 2.3 [place] # 0.7 H Eos # 0.0 Baso # 0.04 Retic Count Sodium Potassium Chloride Carbon Dioxide Anion Gap BUN Creatinine Est GFR ( Amer) Est GFR (Non-Af Amer) POC Glucose (mg/dL) Random Glucose Calcium Phosphorus Magnesium Iron TIBC % Saturation Ferritin Total Bilirubin AST ALT Alkaline Phosphatase Total Protein Albumin Globulin Albumin/Globulin Ratio Vitamin B12 Folate Procalcitonin < 0.05 L TSH 3rd Generation Urine Color Dark yellow Urine Appearance Cloudy Urine pH 6.5 Ur Specific [place] 1.025 Urine Protein 100 H Urine Glucose (UA) Negative Urine Ketones Negative Urine Blood Large H Urine Nitrate Negative Urine Bilirubin Negative Urine Urobilinogen 1.0 H Ur Leukocyte Esterase Trace H Urine RBC Tntc Urine WBC 25 - 30 Ur Epithelial Cells 4 - 5 Urine Bacteria Few Urine Opiates Screen Urine Methadone Screen Ur Barbiturates Screen Ur Phencyclidine Scrn Ur Amphetamines Screen U Benzodiazepines Scrn U Oth Cocaine Metabols U Cannabinoids Screen 11/15/16 11/15/16 11/15/16 08:50 08:50 08:50 WBC RBC Hgb Hct MCV MCH MCHC RDW Plt Count Gran % Lymph % (Auto) [place] % (Auto) Eos % (Auto) Baso % (Auto) Gran # Lymph # [place] # Eos # Baso # Retic Count 1.35 Sodium 140 Potassium 3.7 Chloride 111 H Carbon Dioxide 20 L Anion Gap 13 BUN 8 Creatinine 0.5 Est GFR ( Amer) > 60 Est GFR (Non-Af Amer) > 60 POC Glucose (mg/dL) Random Glucose 96 Calcium 8.5 Phosphorus 2.2 L Magnesium 1.8 Iron 179 TIBC 452 % Saturation 40 Ferritin 4.8 Total Bilirubin 1.4 H AST 41 H ALT 35 Alkaline Phosphatase 75 Total Protein 7.2 Albumin 3.6 Globulin 3.6 Albumin/Globulin Ratio 1.0 L Vitamin B12 539 Folate > 20.0 Procalcitonin TSH 3rd Generation Urine Color Urine Appearance Urine pH Ur Specific [place] Urine Protein Urine Glucose (UA) Urine Ketones Urine Blood Urine Nitrate Urine Bilirubin Urine Urobilinogen Ur Leukocyte Esterase Urine RBC Urine WBC Ur Epithelial Cells Urine Bacteria Urine Opiates Screen Urine Methadone Screen Ur Barbiturates Screen Ur Phencyclidine Scrn Ur Amphetamines Screen U Benzodiazepines Scrn U Oth Cocaine Metabols U Cannabinoids Screen 11/15/16 11/15/16 11/15/16 08:50 11:32 15:30 WBC RBC Hgb Hct MCV MCH MCHC RDW Plt Count Gran % Lymph % (Auto) [place] % (Auto) Eos % (Auto) Baso % (Auto) Gran # Lymph # [place] # Eos # Baso # Retic Count Sodium Potassium Chloride Carbon Dioxide Anion Gap BUN Creatinine Est GFR ( Amer) Est GFR (Non-Af Amer) POC Glucose (mg/dL) 167 H Random Glucose Calcium Phosphorus Magnesium Iron TIBC % Saturation Ferritin Total Bilirubin AST ALT Alkaline Phosphatase Total Protein Albumin Globulin Albumin/Globulin Ratio Vitamin B12 Folate Procalcitonin TSH 3rd Generation 0.22 L Urine Color Urine Appearance Urine pH Ur Specific [place] Urine Protein Urine Glucose (UA) Urine Ketones Urine Blood Urine Nitrate Urine Bilirubin Urine Urobilinogen Ur Leukocyte Esterase Urine RBC Urine WBC Ur Epithelial Cells Urine Bacteria Urine Opiates Screen Negative Urine Methadone Screen Negative Ur Barbiturates Screen Negative Ur Phencyclidine Scrn Negative Ur Amphetamines Screen Negative U Benzodiazepines Scrn Negative U Oth Cocaine Metabols Negative U Cannabinoids Screen Positive H
== END 2016-11-15 17:06 | disposition left against medical advice (07) | DRG 369 ==
LOC: ED 18:59 → ERH 21:51 → 5RSO 22:56
PROVIDERS: ADMIT Hospitalist; ATTEND Hospitalist
DX: N93.9 Abnormal uterine and vaginal bleeding, unspecified (principal); I10 Essential (primary) hypertension; F32.9 Major depressive disorder, single episode, unspecified; E11.9 Type 2 diabetes mellitus without complications; D64.9 Anemia, unspecified; E87.6 Hypokalemia; F60.3 Borderline personality disorder; F43.10 Post-traumatic stress disorder, unspecified; F41.1 Generalized anxiety disorder; F10.10 Alcohol abuse, uncomplicated; D72.829 Elevated white blood cell count, unspecified

== ENCOUNTER 2017-01-07 16:38 | Emergency (ER) | payer MEDICAID ==
[2017-01-07 16:56] VITALS: TEMP 98.3; BMI 31.8
[2017-01-07] MEDS ORDERED: Lidocaine 1% Inj (20ml) ONE (17:21)
--- NOTE | 2017-01-07 17:28 | ED PDOC ---
Arrival/HPI - General Chief Complaint: Lower Extremity Problem/Injury Time Seen by Provider: 01/07/17 16:51 - History of Present Illness Narrative History of Present Illness (Text): 51F c/o atrauamatic left knee pain for the last 3 weeks. pain is constant and worse w movement. she has tried ibuprofen and tylenol without relief. denies fever/chills. she reports similar sx a few years ago at which time she was told she had gout, however no arthrocentesis was done at that time. Past Medical History - Infectious Disease Hx of Infectious Diseases: None - Cardiac Hx Cardiac Disorders: No Hx Hypertension: Yes - Pulmonary Hx Tuberculosis: No - Neurological HX Cerebrovascular Accident: No Hx Seizures: No - Endocrine/Metabolic Hx Diabetes Mellitus Type 2: Yes - Hematological/Oncological Hx Cancer: No Hx Hepatitis C: Yes - Musculoskeletal/Rheumatological Hx Falls: No - Genitourinary/Gynecological Hx Sexually Transmitted Diseases: No - Psychiatric Hx Anxiety: Yes Hx Substance Use: No Other/Comment: borderline personality disorder - Surgical History Hx Section: Yes (x2) - Anesthesia Hx Anesthesia: Yes Hx Anesthesia Reactions: No Hx Malignant Hyperthermia: No Family/Social History Family/Social History: Other (nc) Smoking Status: Heavy Smoker > 10 Cigarettes Daily Hx Alcohol Use: No Hx Substance Use: No Substance used: heroine, cocaine, marijuana Allergies/Home Meds Allergies/Adverse Reactions: Allergies aspirin Adverse Reaction (Verified 11/14/16 19:14) RASH Home Medications: Home Meds Medication Instructions Recorded Confirmed metFORMIN [glucOPHAGE] 1 tab PO BID 11/14/16 01/07/17 Review of Systems - Review of Systems Constitutional: absent: Fevers Respiratory: absent: SOB Cardiovascular: absent: Chest Pain Gastrointestinal: Nausea (chronic). absent: Vomiting Neurological: absent: Headache, Focal Weakness Physical Exam Vital Signs Reviewed: Yes Vital Signs Temp Pulse Resp BP Pulse Ox 01/07/17 20:47 81 17 120/81 98 01/07/17 19:11 88 18 113/70 99 01/07/17 16:55 98.3 F 103 H 18 141/106 H 98 Appearance: Positive for: Well-Appearing, Non-Toxic, Comfortable Pain Distress: Mild Mental Status: Positive for: Alert and Oriented X 3 - Systems Exam Head: Present: Atraumatic Pupils: Present: PERRL Respiratory/Chest: No: Accessory Muscle Use Cardiovascular: Present: Regular Rate and Rhythm Lower Extremity: Present: NORMAL PULSES, Other (left knee effusion without erythema or warmth. rom is normal but induces pain. ) Neurological: Present: GCS=15, Motor Func Grossly Intact, Normal Sensory Function Skin: Present: Warm, Dry Psychiatric: Present: Alert, Oriented x 3 Medical Decision Making ED Course and Treatment: 1900 pt care s/o to Dr Luna. very low suspicion for septic arthritis but will f /u cell counts and xr. I disc w pt plan for f/u for complete results. - Lab Interpretations Lab Results: Lab Results 01/07/17 17:50: Fluid Type Synovial fluid, Synovial WBC 325.0 H, Synovial RBC 90101.0 H, Synovial Neutrophils 42.0 H, Synovial Lymphocytes 53.0 H, Synov Monos /Macrophage 5 H, Synovial Fluid Comment TEST NOT PERFORMED - RAD Interpretation Radiology Orders: 01/07/17 17:28 KNEE LEFT 2 VIEWS (AP & LAT) [RAD] Stat - Medication Orders Current Medication Orders: Discontinued Medications Ketorolac Tromethamine (Toradol) 15 mg IM STAT STA Stop: 01/07/17 17:26 Last Admin: 01/07/17 17:33 Dose: 15 mg MAR Pain Assessment Document 01/07/17 17:33 HI (Rec: 01/07/17 17:33 [id number]) Pain Reassessment Is this a pain reassessment? No Sleep Is patient sleeping during reassessment? No Presence of Pain Presence of Pain Yes Location Left, Right or Bilateral Left Pain Location Body Site Knee IM Administration Charges Document 01/07/17 17:33 HI (Rec: 01/07/17 17:33 [id number]) Injection Site MAR Injection Site Right Deltoid Charges for Administration # of IM Administrations 1 Disposition/Present on Arrival - Present on Arrival Any Indicators Present on Arrival: No History of DVT/PE: No History of Uncontrolled Diabetes: No Urinary Catheter: No History of Decub. Ulcer: No History Surgical Site Infection Following: None - Disposition Have Diagnosis and Disposition been Completed?: Yes Diagnosis: Knee pain, left Disposition: HOME/ ROUTINE Disposition Time: 19:00 Condition: GOOD Discharge Instructions (ExitCare): Swollen Knee Joint (ED), Knee Pain (ED) Additional Instructions: Knee immobilizer for comfort. Ice over area of pain. Naprosyn as prescribed. Tramadol if pain is still unrelieved. Follow up with ortho clinic. Return to the emergency department if any new concerning symptoms. Prescriptions: Naproxen [Naprosyn] 500 mg PO BID PRN #20 tab PRN Reason: Pain traMADol [Ultram] 1 tab PO Q8H PRN #15 tab PRN Reason: Pain, Severe (8-10) Referrals: [facility] [Outside] - Follow up with primary Geraldine Fontaine MD [Primary Care Provider] - Follow up with primary Forms: Heatmaps (Urdu) Procedure: Fluid Aspiration - Procedure Procedure: Arthrocentesis - Consent Obtained Consent obtained: Verbal - Performed By Performed by: Attending Physician - Indications Indication(s): Joint effusion - Location Location: Left, Knee - Anesthetic Technique Anesthetic Technique: Local Anesthetic: Lidocaine 1% Procedure: Usual prep and drape - Appearance Appearance: Straw-colored - Drained Drained ml: 20 - Complications Complications: None - Patient tolerated procedure Patient tolerated procedure: Well
[2017-01-07 18:05] LABS: FLUID TYPE SYNOVIAL FLUID
[2017-01-07 20:28] LABS: SYNOVIAL FLUID TOTAL COUNT 100 (0-0)
--- NOTE | 2017-01-07 20:42 | ED PDOC ---
Physical Exam Vital Signs Reviewed: Yes Vital Signs Temp Pulse Resp BP Pulse Ox 01/07/17 19:11 88 18 113/70 99 01/07/17 16:55 98.3 F 103 H 18 141/106 H 98 Temperature: Afebrile Blood Pressure: Hypertensive Pulse: Tachycardic Respiratory Rate: Normal Appearance: Positive for: Well-Appearing, Non-Toxic, Comfortable Pain Distress: None Mental Status: Positive for: Alert and Oriented X 3 - Systems Exam Head: Present: Atraumatic, Normocephalic Lower Extremity: Present: Other (L knee with swelling but FROM with no erythema with mild anterior ttp; s/p arthrocentesis by Dr. Hastings). No: Edema Medical Decision Making ED Course and Treatment: 01/07/17 20:46 Patient endorsed to me by Dr. Hastings, awaiting synovial cell results; only 325 WBC were found with 42% polys- not consistent with infection - no indication for admission - will d/c on nsaid and analgesic with knee immobolizer and f/u ortho clinic. - Lab Interpretations Lab Results: Lab Results 01/07/17 17:50: Fluid Type Synovial fluid, Synovial WBC 325.0 H, Synovial RBC 59104.0 H, Synovial Neutrophils 42.0 H, Synovial Lymphocytes 53.0 H, Synov Monos /Macrophage 5 H, Synovial Fluid Comment TEST NOT PERFORMED - RAD Interpretation Radiology Orders: 01/07/17 17:28 KNEE LEFT 2 VIEWS (AP & LAT) [RAD] Stat - Medication Orders Current Medication Orders: Discontinued Medications Ketorolac Tromethamine (Toradol) 15 mg IM STAT STA Stop: 01/07/17 17:26 Last Admin: 01/07/17 17:33 Dose: 15 mg MAR Pain Assessment Document 01/07/17 17:33 HI (Rec: 01/07/17 17:33 [id number]) Pain Reassessment Is this a pain reassessment? No Sleep Is patient sleeping during reassessment? No Presence of Pain Presence of Pain Yes Location Left, Right or Bilateral Left Pain Location Body Site Knee IM Administration Charges Document 01/07/17 17:33 HI (Rec: 01/07/17 17:33 [id number]) Injection Site MAR Injection Site Right Deltoid Charges for Administration # of IM Administrations 1 - PA / HOSPITAL SALES REPRESENTATIVE / Resident Statement / has reviewed & agrees with the documentation as recorded. MD/DO has examined the patient and agrees with the treatment plan. Disposition/Present on Arrival - Present on Arrival Any Indicators Present on Arrival: No History of DVT/PE: No History of Uncontrolled Diabetes: No Urinary Catheter: No History of Decub. Ulcer: No History Surgical Site Infection Following: None - Disposition Have Diagnosis and Disposition been Completed?: Yes Diagnosis: Knee pain, left Disposition: HOME/ ROUTINE Disposition Time: 20:45 Patient Plan: Discharge Patient Problems: Current Active Problems Problem Status Onset Knee pain, left Acute Condition: GOOD Discharge Instructions (ExitCare): Knee Pain (ED), Swollen Knee Joint (ED) Additional Instructions: Knee immobilizer for comfort. Ice over area of pain. Naprosyn as prescribed. Tramadol if pain is still unrelieved. Follow up with ortho clinic. Return to the emergency department if any new concerning symptoms. Prescriptions: Naproxen [Naprosyn] 500 mg PO BID PRN #20 tab PRN Reason: Pain traMADol [Ultram] 1 tab PO Q8H PRN #15 tab PRN Reason: Pain, Severe (8-10) Referrals: Geraldine Fontaine MD [Primary Care Provider] - Follow up with primary [facility] [place] [Outside] - Follow up with primary Forms: [employer] (Welsh)
[2017-01-07 20:49] VITALS: BP 120/81; PULSE 81; RESP 17; O2SAT 98
--- NOTE | 2017-01-08 09:23 | RAD ---
PROCEDURE: Left Knee Radiographs. HISTORY: Pain. COMPARISON: None. FINDINGS: BONES: Normal. No fracture. JOINTS: Normal. No osteoarthritis. JOINT EFFUSION: None. OTHER FINDINGS: None. IMPRESSION: Normal radiographs of the left knee.
== END 2017-01-07 20:52 | disposition home or self-care (01) ==
LOC: ED 16:38
DX: M25.562 Pain in left knee (principal); E11.9 Type 2 diabetes mellitus without complications; I10 Essential (primary) hypertension; F17.210 Nicotine dependence, cigarettes, uncomplicated; Z79.84 Long term (current) use of oral hypoglycemic drugs
CPT/HCPCS: 20610; 73560; 87070; 89051; 89060; 96372; 99285; J1885

== ENCOUNTER 2017-03-31 09:43 | Observation (INO) | payer MEDICAID ==
[2017-03-31 10:32] VITALS: BMI 30.9
--- NOTE | 2017-03-31 11:39 | ED PDOC ---
Arrival/HPI - General Chief Complaint: Abnormal Labs Time Seen by Provider: 03/31/17 10:41 Historian: Patient - History of Present Illness Narrative History of Present Illness (Text): 03/31/17 11:28 A 52 year old female, whose past medical history includes non-insulin diabetes, fibroid uterus, and menometrorrhagia, presents to the emergency department after being sent by PMD for s/p discovery low hematocrit. Patient reports she was told today to go to the ER for transfusion. Patient states for the past year , has been bleeding daily (goes through 10-25 pads daily and sometimes passes large clots). Notes also experiencing exertional chest pressure described by patient as "feeling as though there is a truck on chest". Patient denies any other sort of bleeding. PMD: Dr. Eulalia Martinez Past Medical History - Provider Review Nursing Documentation Reviewed: Yes - Infectious Disease Hx of Infectious Diseases: None - Cardiac Hx Cardiac Disorders: No Hx Hypertension: Yes - Pulmonary Hx Tuberculosis: No - Neurological HX Cerebrovascular Accident: No Hx Seizures: No - Endocrine/Metabolic Hx Diabetes Mellitus Type 2: Yes - Hematological/Oncological Hx Cancer: No Hx Hepatitis C: Yes - Musculoskeletal/Rheumatological Hx Falls: No - Genitourinary/Gynecological Hx Sexually Transmitted Diseases: No - Psychiatric Hx Anxiety: Yes Hx Substance Use: No Other/Comment: borderline personality disorder - Surgical History Hx Section: Yes (x2) - Anesthesia Hx Anesthesia: Yes Hx Anesthesia Reactions: No Hx Malignant Hyperthermia: No Family/Social History - Physician Review Nursing Documentation Reviewed: Yes Family/Social History: No Known Family HX Smoking Status: Heavy Smoker > 10 Cigarettes Daily Hx Alcohol Use: No Hx Substance Use: No Substance used: heroine, cocaine, marijuana Allergies/Home Meds Allergies/Adverse Reactions: Allergies aspirin Adverse Reaction (Verified 11/14/16 19:14) RASH Home Medications: Home Meds Medication Instructions Recorded Confirmed metFORMIN [glucOPHAGE] 1 tab PO BID 11/14/16 03/31/17 Review of Systems - Physician Review All systems were reviewed & negative as marked: Yes - Review of Systems Cardiovascular: Other (exertional chest pressure "feels like truck on chest") Genitourinary Female: Vaginal Bleeding Physical Exam - Systems Exam Head: Present: Atraumatic, Normocephalic Pupils: Present: PERRL Extroacular Muscles: Present: EOMI Conjunctiva: Present: Normal Mouth: Present: Moist Mucous Membranes Neck: Present: Normal Range of Motion Respiratory/Chest: Present: Clear to Auscultation, Good Air Exchange. No: Respiratory Distress, Accessory Muscle Use Cardiovascular: Present: Regular Rate and Rhythm, Normal S1, S2. No: Murmurs Abdomen: Present: Normal Bowel Sounds. No: Tenderness, Distention, Peritoneal Signs Back: Present: Normal Inspection Upper Extremity: Present: Normal Inspection. No: Cyanosis, Edema Lower Extremity: Present: Normal Inspection. No: Edema Neurological: Present: GCS=15, CN II-XII Intact, Speech Normal Skin: Present: Warm, Dry, Normal Color. No: Rashes Psychiatric: Present: Alert, Oriented x 3, Normal Insight, Normal Concentration Medical Decision Making ED Course and Treatment: 03/31/17 11:39 Impression: 52 year old female with s/p low hematocrit. Physical examination is unremarkable. Plan: -- EKG -- Chest X-ray -- Labs -- Urine Culture -- Urinalysis -- Reassess and disposition Progress Notes: EKG: Ordered, reviewed, and independently interpreted the EKG. Rate : 72 BPM Rhythm : NSR Interpretation : No ST-segment elevations or depressions, no T-wave inversions, normal intervals. Comparison : No previous EKG for comparison. - RAD Interpretation Radiology Orders: 03/31/17 10:42 CHEST PORTABLE [RAD] Stat - Scribe Statement The provider has reviewed the documentation as recorded by the Kvngibjericho Thompson Provider Scribe Attestation: All medical record entries made by the Scribe were at my direction and personally dictated by me. I have reviewed the chart and agree that the record accurately reflects my personal performance of the history, physical exam, medical decision making, and the department course for this patient. I have also personally directed, reviewed, and agree with the discharge instructions and disposition. Disposition/Present on Arrival - Present on Arrival History of DVT/PE: No History of Uncontrolled Diabetes: No Urinary Catheter: No History of Decub. Ulcer: No History Surgical Site Infection Following: None - Disposition Referrals: Eulalia Martinez MD [Primary Care Provider] - Follow up with primary Forms: [employer] (Uzbek)
[2017-03-31 12:28] LABS: BASO # 0.04 K/mm3 (0.0-2.0); BASO % 0.4 % (0.0-3.0); EOS # 0.1 (0.0-0.7); EOS % 0.6 % (1.5-5.0); GRAN # 8.31 (1.4-6.5); GRAN % 74.8 % (50.0-68.0); LYMPH # 2.2 (1.2-3.4); LYMPH % 19.7 % (22.0-35.0); MEAN CELL VOLUME 52.2 fl (80.0-105.0); MEAN CORPUSCULAR HEMOGLOBIN 14.4 pg (25.0-35.0); MEAN CORPUSCULAR HGB CONC 27.6 g/dl (31.0-37.0); MONO # 0.5 (0.1-0.6); MONO % 4.5 % (1.0-6.0); PLATELET COUNT 303 10^3/uL (120.0-450.0); RBC 4.37 10^6/uL (3.5-6.1); RED CELL DISTRIBUTION WIDTH 20.2 % (11.5-14.5); WHITE BLOOD COUNT 11.1 10^3/ul (4.5-11.0)
[2017-03-31 12:32] LABS: HEMOGLOBIN 6.3 g/dL (12.0-16.0)
[2017-03-31 12:39] LABS: ALB/GLOB RATIO 1.1 (1.1-1.8); ALBUMIN 3.7 g/dL (3.0-4.8); ALT/SGPT 41 U/L (7-56); AST/SGOT 32 U/L (14-36); BLOOD UREA NITROGEN 15 mg/dL (7-21); CALCIUM 8.9 mg/dL (8.4-10.5); GFR AFRICAN-AMERICAN > 60; GFR NON-AFRICAN AMERICAN > 60; INR 0.97 (0.93-1.08); LIPASE 50 U/L (23-300); PROTHROMBIN TIME 11.1 SECONDS (9.4-12.5)
--- NOTE | 2017-03-31 12:50 | CARD ---
APPROVED REPORT EKG Measurement Heart [id number] 144P-5 [id number] <Conclusion> Normal sinus rhythm Nonspecific T wave abnormality Abnormal ECG
[2017-03-31 12:51] LABS: TROPONIN I < 0.01 ng/mL
[2017-03-31] MEDS ORDERED: DiphenhydrAMINE 50 mg/ml Inj IVP PRN (15:22)
--- NOTE | 2017-03-31 16:16 | CP.PCM.HP ---
<Lizet Muller - Last Filed: 03/31/17 16:07> History of Present Illness - History of Present Illness History of Present Illness: Dr. Ontiveros Service 52 F with a PMHx of HTN, DM2, Known and untreated Hep C, IVDU (heorin), uterine fibroids, and blood transfusion (10/2016) presenting to [facility] at the request of her PMD, Dr. Eulalia Martinez with symptomatic anemia. Patient reports she was told today to go to the ER for transfusion following labwork completed approx a week ago in PMD office. Patient states for the past year, has been bleeding daily and has to use daily pads. Pt has experienced symptoms before, and required blood transfusion 3-4 months ago. Her symptoms and bleeding worsens at different periods throughout the month. Pt reports symptoms of fatigue, weakness , exertinal dyspnea, and chest discomfort. Pt reports relief from symptoms while resting. Pt denied fever, chills, chest pains, abdominal pains, nausea, vomiting, diarrhea, constipation or urinary symptoms. PMHx: HTN, DM2, Known and untreated Hep C, IVDU (heorin) and uterine fibroids PSHx: c-sections x 2 SHx- 1/2 ppd, denies ETOH use, former illicit drug user Family hx- Denied Allergies: Aspiring- Hives Meds: Metformin 500mg BID PMD: Dr. Eulalia Martinez [place] Sequ[facility]: Dr. Miller Present on Admission - Present on Admission Any Indicators Present on Admission: No Review of Systems - Review of Systems Review of Systems: As per HPI otherwise Negative Past Patient History - Infectious Disease Hx of Infectious Diseases: None - Past Medical History & Family History Past Medical History?: No - Past Social History Smoking Status: Heavy Smoker > 10 Cigarettes Daily - CARDIAC Hx Cardiac Disorders: No Hx Hypertension: Yes - PULMONARY Hx Tuberculosis: No - NEUROLOGICAL HX Cerebrovascular Accident: No Hx Seizures: No - ENDOCRINE/METABOLIC Hx Diabetes Mellitus Type 2: Yes - HEMATOLOGICAL/ONCOLOGICAL Hx Cancer: No Hx Hepatitis C: Yes - MUSCULOSKELETAL/RHEUMATOLOGICAL Hx Falls: No - GENITOURINARY/GYNECOLOGICAL Hx Sexually Transmitted Disorders: No - PSYCHIATRIC Hx Anxiety: Yes Hx Substance Use: No Other/Comment: borderline personality disorder - SURGICAL HISTORY Hx Section: Yes (x2) - ANESTHESIA Hx Anesthesia: Yes Hx Anesthesia Reactions: No Hx Malignant Hyperthermia: No Meds Allergies/Adverse Reactions: Allergies Allergy/AdvReac Type Severity Reaction Status Date / Time aspirin AdvReac RASH Verified 11/14/16 19:14 Physical Exam - Constitutional Appears: No Acute Distress - Head Exam Head Exam: ATRAUMATIC, NORMAL INSPECTION, NORMOCEPHALIC - Eye Exam Eye Exam: EOMI, Normal appearance, PERRL Pupil Exam: NORMAL ACCOMODATION, PERRL - ENT Exam ENT Exam: Mucous Membranes Moist, Normal Exam - Neck Exam Neck exam: Positive for: Normal Inspection - Respiratory Exam Respiratory Exam: Clear to Auscultation Bilateral, NORMAL BREATHING PATTERN - Cardiovascular Exam Cardiovascular Exam: REGULAR RHYTHM, +S1, +S2 - GI/Abdominal Exam GI & Abdominal Exam: Normal Bowel Sounds, Soft. absent: Tenderness - Extremities Exam Extremities exam: Positive for: normal inspection - Neurological Exam Neurological exam: Alert, CN II-XII Intact, Normal Gait, Oriented x3, Reflexes Normal - Psychiatric Exam Psychiatric exam: Normal Affect, Normal Mood - Skin Skin Exam: Dry, Intact, Normal Color, Warm Results - Vital Signs Recent Vital Signs: Last Vital Signs Temp 98.2 F 03/31/17 16:06 Pulse 64 03/31/17 16:06 Resp 18 03/31/17 16:06 BP 121/85 03/31/17 16:06 Pulse Ox 100 03/31/17 16:06 - Labs Result Diagrams: 03/31/17 12:14 03/31/17 12:14 Assessment & Plan - Assessment and Plan (Free Text) Assessment: 52 F with a PMHx of HTN, DM2, known and untreated Hep C, and uterine fibroids presenting to [facility] with complaints of fatigue and weakness and admitted for symptomatic anemia. Vaginal Bleeding 2/2 fibroids - transvaginal us report reviewed from previous admission: 1. Cervical lesion, indeterminate. Malignancy not excluded. Clinical correlation is needed. 2. Thickened endometrium, abnormal if patient is postmenopausal. Clinical correlation and follow up are recommended. 3. LEFT ovarian lesion, incompletely characterized. Recommend MRI. 4. Probable fibroid. - hotel associate appointment tomorrow 04/01/17, considering hysterectomy - transfuse 2 u pRBC, CBC q6 fu for appropriate response - benadryl, tylenol PRN Leukocytosis - FU CXR, UA/UCx - monitor closely via CBC in AM, PCT HTN - stable - As per pt, PMD stopped HCTZ - monitor closely DM - Hold home metformin - ISS - Accuchecks ACHS Hep C - fu case checker as per PMD MDD, Borderline personality disorder, and Generalized Anxiety Disorder - patients mood stable without medications PPX - Scds - Protonix Seen Reviewed and Discussed with Attending, Dr. Ontiveros <Carl Ontiveros B - Last Filed: 03/31/17 17:22> Results - Vital Signs Recent Vital Signs: Last Vital Signs Temp 97.9 F 03/31/17 16:15 Pulse 61 03/31/17 16:15 Resp 18 03/31/17 16:15 BP 114/78 03/31/17 16:15 Pulse Ox 100 03/31/17 16:06 - Labs Result Diagrams: 03/31/17 12:14 03/31/17 12:14 Attending/Attestation - Attestation I have personally seen and examined this patient.: Yes I have fully participated in the care of the patient.: Yes I have reviewed all pertinent clinical information: Yes Notes (Text): I have seen and examined the patient at bedside. Agree with the above note with the following additions/ exceptions: Briefly this is 52 year old female with history of HTN, DM-2, known and untreated HepC, remote IVDA, uterine fibroids, multiple blood transfusions who was advised by PMD to come to ED to get blood transfusion. Patient has symptomatic anemia due to DUB. Patient has been following up with PMD and obgyn regularly for possible hysterectomy. She has an appointment tomorrow and is requesting to be discharged by tomorrow morning. Will give 2 units of prbc. Will not do work up for anemia as she already has been following up with her doctors regularly. Upon discharge patient will follow up with Dr Eulalia Martinez and Dr Miller. Dr Carl Ontiveros
--- NOTE | 2017-03-31 16:26 | RAD ---
HISTORY: routine med exam COMPARISON: No prior. FINDINGS: LUNGS: No active pulmonary disease. PLEURA: No significant pleural effusion identified, no pneumothorax apparent. CARDIOVASCULAR: Normal. OSSEOUS STRUCTURES: No significant abnormalities. VISUALIZED UPPER ABDOMEN: Normal. OTHER FINDINGS: None. IMPRESSION: No active disease.
[2017-03-31] MEDS: Insulin Lispro (humaLOG) LOW Coverage SC SCH ×2 (17:00→22:48)
[2017-04-01 00:10] VITALS: RESP 20
[2017-04-01 02:34] LABS: HEMOGLOBIN 8.9 g/dL (12.0-16.0); MEAN CELL VOLUME 57.5 fl (80.0-105.0); MEAN CORPUSCULAR HGB CONC 29.7 g/dl (31.0-37.0); PLATELET COUNT 286 10^3/uL (120.0-450.0); RBC 5.22 10^6/uL (3.5-6.1); RED CELL DISTRIBUTION WIDTH 27.2 % (11.5-14.5); WHITE BLOOD COUNT 8.5 10^3/ul (4.5-11.0)
[2017-04-01 05:58] VITALS: BP 140/93; TEMP 97.7; O2SAT 100
[2017-04-01 06:42] LABS: PH,URINE 6.5 (4.7-8.0); URINE BILIRUBIN NEGATIVE (NEGATIVE); URINE BLOOD LARGE (NEGATIVE); URINE GLUCOSE (UA) NEGATIVE (NEGATIVE); URINE LEUKOCYTE ESTERASE NEGATIVE Leu/uL (NEGATIVE); URINE NITRATE NEGATIVE (NEGATIVE); URINE PROTEIN 30 mg/dL (<30 mg/dL)
[2017-04-01 06:42] LABS: BASO # 0.04 K/mm3 (0.0-2.0); BASO % 0.6 % (0.0-3.0); EOS # 0.1 (0.0-0.7); EOS % 0.8 % (1.5-5.0); GRAN # 4.56 (1.4-6.5); GRAN % 63.3 % (50.0-68.0); HEMOGLOBIN 8.8 g/dL (12.0-16.0); LYMPH # 2.1 (1.2-3.4); LYMPH % 29.2 % (22.0-35.0); MEAN CELL VOLUME 57.2 fl (80.0-105.0); MEAN CORPUSCULAR HEMOGLOBIN 16.9 pg (25.0-35.0); MEAN CORPUSCULAR HGB CONC 29.5 g/dl (31.0-37.0); MONO # 0.4 (0.1-0.6); MONO % 6.1 % (1.0-6.0); PLATELET COUNT 302 10^3/uL (120.0-450.0); RBC 5.21 10^6/uL (3.5-6.1); RED CELL DISTRIBUTION WIDTH 26.7 % (11.5-14.5); WHITE BLOOD COUNT 7.2 10^3/ul (4.5-11.0)
[2017-04-01 06:45] LABS: URINE APPEARANCE SL CLOUDY (CLEAR); URINE COLOR YELLOW (YELLOW)
[2017-04-01 07:01] LABS: URINE BACTERIA TRACE (NEG); URINE WBC 0 - 2 /hpf (0-6)
[2017-04-01 07:53] LABS: ALBUMIN 3.6 g/dL (3.0-4.8); ALT/SGPT 37 U/L (7-56); AST/SGOT 41 U/L (14-36); BLOOD UREA NITROGEN 13 mg/dL (7-21); CALCIUM 9.4 mg/dL (8.4-10.5); GFR AFRICAN-AMERICAN > 60; GFR NON-AFRICAN AMERICAN > 60; MAGNESIUM 1.9 mg/dL (1.7-2.2)
[2017-04-01] MEDS: Insulin Lispro (humaLOG) LOW Coverage SC SCH (08:09)
[2017-04-01 10:28] VITALS: PULSE 57
--- NOTE | 2017-04-01 22:36 | CP.PCM.DIS ---
<Milli Garay - Last Filed: 04/01/17 22:33> Provider - Provider Date of Admission: 03/31/17 14:18 Attending physician: Angelita Keene MD Primary care physician: Eulalia Martinez MD Time Spent in preparation of Discharge (in minutes): 25 Diagnosis - Discharge Diagnosis (1) Symptomatic anemia Status: Acute (2) Abnormal vaginal bleeding Status: Acute Priority: High Hospital Course - Lab Results Lab Results: Most Recent Lab Values WBC 7.2 10^3/ul (4.5-11.0) 04/01/17 05:45 RBC 5.21 10^6/uL (3.5-6.1) 04/01/17 05:45 Hgb 8.8 g/dL (12.0-16.0) L 04/01/17 05:45 Hct 29.8 % (36.0-48.0) L 04/01/17 05:45 MCV 57.2 fl (80.0-105.0) L 04/01/17 05:45 MCH 16.9 pg (25.0-35.0) L 04/01/17 05:45 MCHC 29.5 g/dl (31.0-37.0) L 04/01/17 05:45 RDW 26.7 % (11.5-14.5) H 04/01/17 05:45 Plt Count 302 10^3/uL (120.0-450.0) 04/01/17 05:45 Gran % 63.3 % (50.0-68.0) 04/01/17 05:45 Lymph % (Auto) 29.2 % (22.0-35.0) 04/01/17 05:45 Bulloch % (Auto) 6.1 % (1.0-6.0) H 04/01/17 05:45 Eos % (Auto) 0.8 % (1.5-5.0) L 04/01/17 05:45 Baso % (Auto) 0.6 % (0.0-3.0) 04/01/17 05:45 Gran # 4.56 (1.4-6.5) 04/01/17 05:45 Lymph # (Auto) 2.1 (1.2-3.4) 04/01/17 05:45 Bulloch # (Auto) 0.4 (0.1-0.6) 04/01/17 05:45 Eos # (Auto) 0.1 (0.0-0.7) 04/01/17 05:45 Baso # (Auto) 0.04 K/mm3 (0.0-2.0) 04/01/17 05:45 PT 11.1 SECONDS (9.4-12.5) 03/31/17 12:14 INR 0.97 (0.93-1.08) 03/31/17 12:14 APTT 29.0 Seconds (25.1-36.5) 03/31/17 12:14 Sodium 141 mmol/L (132-148) 04/01/17 05:45 Potassium 3.9 mmol/L (3.6-5.0) 04/01/17 05:45 Chloride 110 mmol/L (98-107) H 04/01/17 05:45 Carbon Dioxide 23 mmol/L (21-33) 04/01/17 05:45 Anion Gap 12 (10-20) 04/01/17 05:45 BUN 13 mg/dL (7-21) 04/01/17 05:45 Creatinine 0.6 mg/dl (0.7-1.2) L 04/01/17 05:45 Est GFR ( Amer) > 60 04/01/17 05:45 Est GFR (Non-Af Amer) > 60 04/01/17 05:45 POC Glucose (mg/dL) 96 mg/dL (65-110) 04/01/17 07:46 Random Glucose 94 mg/dL (70-110) 04/01/17 05:45 Calcium 9.4 mg/dL (8.4-10.5) 04/01/17 05:45 Phosphorus 2.6 mg/dL (2.5-4.5) 04/01/17 05:45 Magnesium 1.9 mg/dL (1.7-2.2) 04/01/17 05:45 Total Bilirubin 0.7 mg/dL (0.2-1.3) 04/01/17 05:45 AST 41 U/L (14-36) H D 04/01/17 05:45 ALT 37 U/L (7-56) 04/01/17 05:45 Alkaline Phosphatase 75 U/L (38-126) 04/01/17 05:45 Troponin I < 0.01 ng/mL 03/31/17 12:14 Total Protein 7.3 g/dL (5.8-8.3) 04/01/17 05:45 Albumin 3.6 g/dL (3.0-4.8) 04/01/17 05:45 Globulin 3.7 gm/dL 04/01/17 05:45 Albumin/Globulin Ratio 1.0 (1.1-1.8) L 04/01/17 05:45 Lipase 50 U/L (23-300) 03/31/17 12:14 Procalcitonin < 0.05 NG/ML (0.19-0.49) L 04/01/17 02:15 Urine Color Yellow (YELLOW) 04/01/17 06:32 Urine Appearance Sl cloudy (CLEAR) 04/01/17 06:32 Urine pH 6.5 (4.7-8.0) 04/01/17 06:32 Ur Specific Mckenna 1.025 (1.005-1.035) 04/01/17 06:32 Urine Protein 30 mg/dL (<30 mg/dL) H 04/01/17 06:32 Urine Glucose (UA) Negative mg/dL (NEGATIVE) 04/01/17 06:32 Urine Ketones Negative mg/dL (NEGATIVE) 04/01/17 06:32 Urine Blood Large (NEGATIVE) H 04/01/17 06:32 Urine Nitrate Negative (NEGATIVE) 04/01/17 06:32 Urine Bilirubin Negative (NEGATIVE) 04/01/17 06:32 Urine Urobilinogen 2.0 E.U./dL (<1 E.U./dL) H 04/01/17 06:32 Ur Leukocyte Esterase Negative Kacy/uL (NEGATIVE) 04/01/17 06:32 Urine RBC 1 - 3 /hpf (0-2) 04/01/17 06:32 Urine WBC 0 - 2 /hpf (0-6) 04/01/17 06:32 Ur Epithelial Cells 3 - 4 /hpf (0-5) 04/01/17 06:32 Urine Bacteria Trace (NEG) 04/01/17 06:32 Urine Other Mucus 04/01/17 06:32 Blood Type AB POSITIVE 03/31/17 13:40 Antibody Screen Negative 03/31/17 13:40 Crossmatch See Detail 03/31/17 13:40 BBK History Checked Patient has bt 03/31/17 13:40 - Hospital Course Hospital Course: 52 F with a PMHx of HTN, DM2, known and untreated Hep C, and uterine fibroids who presented to [facility] with complaints of fatigue and weakness and admitted for symptomatic anemia. She was instructed to report to the ER by her PMD Dr. Eulalia Martinez for transfusion after seeing the results of bloodwork from the week prior. Patient admitted to daily vaginal bleeding for the past year, requiring transfusions in the past, due to known uterine fibroids. Patient received two units of PRBC overnight, without complications. Repeat bloodwork showed appropriate elevation in her H&H. Today, patient reports feeling better overall , and denies any chest pain, shortness of breath, fever, chills, nausea, vomiting, diarrhea, constipation. She has an appointment with her OBGYN today at 1130. Patient was given follow up instructions. All questions were answered to her satisfaction, and she was discharged to home. Discharge Exam - Head Exam Head Exam: ATRAUMATIC, NORMAL INSPECTION, NORMOCEPHALIC - Eye Exam Eye Exam: EOMI, Normal appearance, PERRL - ENT Exam ENT Exam: Mucous Membranes Moist - Neck Exam Neck exam: Normal Inspection - Respiratory Exam Respiratory Exam: Clear to PA & Lateral, NORMAL BREATHING PATTERN - Cardiovascular Exam Cardiovascular Exam: RRR, +S1, +S2 - GI/Abdominal Exam GI & Abdominal Exam: Normal Bowel Sounds, Soft. absent: Tenderness - Extremities Exam Extremities exam: normal inspection - Neurological Exam Neurological exam: Alert, CN II-XII Intact, Oriented x3 - Psychiatric Exam Psychiatric exam: Normal Affect, Normal Mood - Skin Skin Exam: Dry, Intact, Normal Color Discharge Plan - Follow Up Plan Condition: GOOD Disposition: HOME/ ROUTINE Instructions: Anemia (GEN) Additional Instructions: 1. Pt is to FU with PMD Dr Eulalia Martinez within 3-5 days 2. Pt is to keep scheduled appt for checkroom chief with Dr. Miller as previously described and fu with reccs today 3. Pt is to take home meds as prescribed 4. Pt is welcome to return to [facility] if symptoms change or worsen Referrals: Eulalia Martinez MD [Primary Care Provider] - <Carl Ontiveros - Last Filed: 04/02/17 14:23> Provider - Provider Date of Admission: 03/31/17 14:18 Attending physician: Angelita Keene MD Primary care physician: Eulalia Martinez MD Time Spent in preparation of Discharge (in minutes): 35 Hospital Course - Lab Results Lab Results: Most Recent Lab Values WBC 7.2 10^3/ul (4.5-11.0) 04/01/17 05:45 RBC 5.21 10^6/uL (3.5-6.1) 04/01/17 05:45 Hgb 8.8 g/dL (12.0-16.0) L 04/01/17 05:45 Hct 29.8 % (36.0-48.0) L 04/01/17 05:45 MCV 57.2 fl (80.0-105.0) L 04/01/17 05:45 MCH 16.9 pg (25.0-35.0) L 04/01/17 05:45 MCHC 29.5 g/dl (31.0-37.0) L 04/01/17 05:45 RDW 26.7 % (11.5-14.5) H 04/01/17 05:45 Plt Count 302 10^3/uL (120.0-450.0) 04/01/17 05:45 Gran % 63.3 % (50.0-68.0) 04/01/17 05:45 Lymph % (Auto) 29.2 % (22.0-35.0) 04/01/17 05:45 Bulloch % (Auto) 6.1 % (1.0-6.0) H 04/01/17 05:45 Eos % (Auto) 0.8 % (1.5-5.0) L 04/01/17 05:45 Baso % (Auto) 0.6 % (0.0-3.0) 04/01/17 05:45 Gran # 4.56 (1.4-6.5) 04/01/17 05:45 Lymph # (Auto) 2.1 (1.2-3.4) 04/01/17 05:45 Bulloch # (Auto) 0.4 (0.1-0.6) 04/01/17 05:45 Eos # (Auto) 0.1 (0.0-0.7) 04/01/17 05:45 Baso # (Auto) 0.04 K/mm3 (0.0-2.0) 04/01/17 05:45 PT 11.1 SECONDS (9.4-12.5) 03/31/17 12:14 INR 0.97 (0.93-1.08) 03/31/17 12:14 APTT 29.0 Seconds (25.1-36.5) 03/31/17 12:14 Sodium 141 mmol/L (132-148) 04/01/17 05:45 Potassium 3.9 mmol/L (3.6-5.0) 04/01/17 05:45 Chloride 110 mmol/L (98-107) H 04/01/17 05:45 Carbon Dioxide 23 mmol/L (21-33) 04/01/17 05:45 Anion Gap 12 (10-20) 04/01/17 05:45 BUN 13 mg/dL (7-21) 04/01/17 05:45 Creatinine 0.6 mg/dl (0.7-1.2) L 04/01/17 05:45 Est GFR ( Amer) > 60 04/01/17 05:45 Est GFR (Non-Af Amer) > 60 04/01/17 05:45 POC Glucose (mg/dL) 96 mg/dL (65-110) 04/01/17 07:46 Random Glucose 94 mg/dL (70-110) 04/01/17 05:45 Calcium 9.4 mg/dL (8.4-10.5) 04/01/17 05:45 Phosphorus 2.6 mg/dL (2.5-4.5) 04/01/17 05:45 Magnesium 1.9 mg/dL (1.7-2.2) 04/01/17 05:45 Total Bilirubin 0.7 mg/dL (0.2-1.3) 04/01/17 05:45 AST 41 U/L (14-36) H D 04/01/17 05:45 ALT 37 U/L (7-56) 04/01/17 05:45 Alkaline Phosphatase 75 U/L (38-126) 04/01/17 05:45 Troponin I < 0.01 ng/mL 03/31/17 12:14 Total Protein 7.3 g/dL (5.8-8.3) 04/01/17 05:45 Albumin 3.6 g/dL (3.0-4.8) 04/01/17 05:45 Globulin 3.7 gm/dL 04/01/17 05:45 Albumin/Globulin Ratio 1.0 (1.1-1.8) L 04/01/17 05:45 Lipase 50 U/L (23-300) 03/31/17 12:14 Procalcitonin < 0.05 NG/ML (0.19-0.49) L 04/01/17 02:15 Urine Color Yellow (YELLOW) 04/01/17 06:32 Urine Appearance Sl cloudy (CLEAR) 04/01/17 06:32 Urine pH 6.5 (4.7-8.0) 04/01/17 06:32 Ur Specific Mckenna 1.025 (1.005-1.035) 04/01/17 06:32 Urine Protein 30 mg/dL (<30 mg/dL) H 04/01/17 06:32 Urine Glucose (UA) Negative mg/dL (NEGATIVE) 04/01/17 06:32 Urine Ketones Negative mg/dL (NEGATIVE) 04/01/17 06:32 Urine Blood Large (NEGATIVE) H 04/01/17 06:32 Urine Nitrate Negative (NEGATIVE) 04/01/17 06:32 Urine Bilirubin Negative (NEGATIVE) 04/01/17 06:32 Urine Urobilinogen 2.0 E.U./dL (<1 E.U./dL) H 04/01/17 06:32 Ur Leukocyte Esterase Negative Kacy/uL (NEGATIVE) 04/01/17 06:32 Urine RBC 1 - 3 /hpf (0-2) 04/01/17 06:32 Urine WBC 0 - 2 /hpf (0-6) 04/01/17 06:32 Ur Epithelial Cells 3 - 4 /hpf (0-5) 04/01/17 06:32 Urine Bacteria Trace (NEG) 04/01/17 06:32 Urine Other Mucus 04/01/17 06:32 Blood Type AB POSITIVE 03/31/17 13:40 Antibody Screen Negative 03/31/17 13:40 Crossmatch See Detail 03/31/17 13:40 BBK History Checked Patient has bt 03/31/17 13:40 Attending/Attestation - Attestation I have personally seen and examined this patient.: Yes I have fully participated in the care of the patient.: Yes I have reviewed all pertinent clinical information, including history, physical exam and plan: Yes Notes (Text): I have seen and examined the patient at bedside. Agree with the above note with the following additions/ exceptions: Briefly this is 52 year old female with history of HTN, DM-2, known and untreated HepC, remote IVDA, uterine fibroids, multiple blood transfusions who was advised by PMD to come to ED to get blood transfusion. Patient has symptomatic anemia due to DUB. Patient has been following up with PMD and obgyn regularly for possible hysterectomy. She has an appointment today and is requesting to be discharged. Patient was given 2 units of prbc. Repeat blood work shows Hb of 8.5. Upon discharge patient will follow up with Dr Eulalia Martinez and Dr Miller. Dr Carl Ontiveros
== END 2017-04-01 10:48 | disposition home or self-care (01) ==
LOC: ED 09:43 → ERH 14:18 → 2RSO 16:15
PROVIDERS: ADMIT Internal Medicine; ATTEND Internal Medicine
DX: D50.0 Iron deficiency anemia secondary to blood loss (chronic) (principal); D25.9 Leiomyoma of uterus, unspecified; N93.8 Other specified abnormal uterine and vaginal bleeding; B19.20 Unspecified viral hepatitis C without hepatic coma; D72.829 Elevated white blood cell count, unspecified; E11.9 Type 2 diabetes mellitus without complications; F32.9 Major depressive disorder, single episode, unspecified; F60.3 Borderline personality disorder; F41.1 Generalized anxiety disorder; I10 Essential (primary) hypertension; Z79.84 Long term (current) use of oral hypoglycemic drugs; F17.210 Nicotine dependence, cigarettes, uncomplicated
CPT/HCPCS: 36415; 36430; 71045; 80053; 81001; 82948; 83690; 83735; 84100; 84145; 84484; 85025; 85027; 85610; 85730; 86850; 86900; 86920; 87086; 93005; 99285; C9113; G0378; P9016